=== PATIENT | female | born 1980 | race American Indian/Alaskan Native ===

== ENCOUNTER 2020-11-24 07:25 | Emergency (ER) | payer SELFPAY ==
--- NOTE | 2020-11-24 07:58 | Emergency Department Report ---
Blank Doc - Documentation Documentation: 40-year-old female that presents with RLQ with nausea. Stated also has vaginal discharge. 1- This initial assessment/diagnostic orders/clinical plan/ treatment(s) is/are subject to change based on pt's health status, clinical progression and re- assessment by fellow clinical providers in the ED. Further treatment and workup at subsequent clinical provers discretion. Patient/guardians urged not to elope from ED as their condition may be serious if not clinically assessed and managed. 2-labs 3-UA
[2020-11-24 09:03] LABS: Basophils % (Auto) 0.6 % (0.0-1.8); Eosinophils # (Auto) 0.2 K/mm3 (0.0-0.4); Hematocrit 26.4 % (30.3-42.9); Hemoglobin 8.2 gm/dl (10.1-14.3); Lymphocytes # (Auto) 1.6 K/mm3 (1.2-5.4); Lymphocytes % (Auto) 23.1 % (13.4-35.0); Mean Corpuscular HGB Conc 31 % (30-34); Monocytes # (Auto) 0.6 K/mm3 (0.0-0.8); Monocytes % (Auto) 8.5 % (0.0-7.3); Platelet Count 289 K/mm3 (140-440); Red Blood Count 3.82 M/mm3 (3.65-5.03)
[2020-11-24 09:05] LABS: Mean Corpuscular Volume 69 fl (79-97); Red Cell Distribution Width 21.8 % (13.2-15.2)
[2020-11-24 09:27] LABS: Bilirubin,Urine NEG (Negative); Blood,Urine NEG (Negative); Color,Urine Yellow (Yellow); Mucus,Urine FEW /HPF; Protein,Urine <15 mg/dL mg/dL (Negative); RBC,Urine < 1.0 /HPF (0.0-6.0); Urobilinogen,Urine < 2.0 mg/dL (<2.0)
[2020-11-24 09:50] LABS: Alanine Aminotransferase 14 units/L (7-56); Albumin 3.9 g/dL (3.9-5); BUN/Creatinine Ratio 12; Blood Urea Nitrogen 11 mg/dL (7-17); Hemolysis Index 0
[2020-11-24] MEDS ORDERED: ONDANSETRON 4 MG/2 ML INJ IV ONE (09:54)
[2020-11-24] MEDS ORDERED: MORPHINE 2 MG/1 ML INJ IV ONE (09:54)
--- NOTE | 2020-11-24 09:56 | Emergency Department Report ---
ED Abdominal Pain HPI - General Chief Complaint: Abdominal Pain Stated Complaint: ABD PAIN Time Seen by Provider: 11/24/20 07:45 Source: patient Mode of arrival: Ambulatory Limitations: No Limitations - History of Present Illness Initial Comments: 40-year-old female, history of fibroids, presents to ED with abdominal pain x3 weeks. Patient states pain is located in the right lower quadrant, nonradiating. Aching in nature. Patient states pain is intermittent with no aggravating or alleviating factors. She reports nausea, no vomiting. She denies any fever, urinary frequency, hematuria, dysuria. She reports she had a fibroidectomy some years ago, but feels as if her fibroids may be back and causing her current pain. Patient also reports lumps in her right breast. Patient states this has been present for about 4 years. Patient states she had a mammogram approximately 4 years ago and was told that she had "lumpy breasts." Patient has not had a mammogram since. MD Complaint: abdominal pain -: week(s) (3) Location: RLQ Radiation: none Migration to: no migration Severity: moderate Quality: aching Consistency: intermittent Improves With: nothing Worsens With: nothing Associated Symptoms: nausea. denies: vomiting, diarrhea, fever, dysuria, hematuria - Related Data Previous Rx's Medication Instructions Recorded Last Taken Type Naproxen [Naprosyn] 500 mg PO BID #20 tablet 11/24/20 Unknown Rx traMADoL [Ultram] 50 mg PO Q6HR PRN #7 tablet 11/24/20 Unknown Rx Allergies Allergy/AdvReac Type Severity Reaction Status Date / Time No Known Allergies Allergy Unverified 11/24/20 07:42 ED Review of Systems ROS: Stated complaint: ABD PAIN Other details as noted in HPI Comment: All other systems reviewed and negative Constitutional: denies: chills, fever Gastrointestinal: abdominal pain. denies: nausea, vomiting, diarrhea Genitourinary: denies: dysuria, frequency, hematuria Other: reports breast masses ED Past Medical Hx - Past Medical History Previous Medical History?: No - Surgical History Past Surgical History?: Yes Additional Surgical History: fibroids - Social History Smoking Status: Current Every Day Smoker Substance Use Type: None - Medications Home Medications: Home Medications Medication Instructions Recorded Confirmed Last Taken Type Naproxen [Naprosyn] 500 mg PO BID #20 tablet 11/24/20 Unknown Rx traMADoL [Ultram] 50 mg PO Q6HR PRN #7 tablet 11/24/20 Unknown Rx ED Physical Exam - General Limitations: No Limitations General appearance: alert, in no apparent distress, obese - Head Head exam: Present: atraumatic, normocephalic - Eye Eye exam: Present: normal appearance, EOMI - ENT ENT exam: Present: mucous membranes moist - Neck Neck exam: Present: normal inspection - Respiratory Respiratory exam: Present: normal lung sounds bilaterally. Absent: respiratory distress - Cardiovascular Cardiovascular Exam: Present: regular rate, normal rhythm - GI/Abdominal GI/Abdominal exam: Present: soft, tenderness (RLQ tenderness), other (uterus enlarged). Absent: distended - Extremities Exam Extremities exam: Present: normal inspection - Neurological Exam Neurological exam: Present: alert, oriented X3 - Psychiatric Psychiatric exam: Present: normal affect, normal mood - Skin Skin exam: Present: warm, dry, intact, normal color. Absent: rash - Other Other exam information: palpable masses in right breast ED Course Vital Signs 11/24/20 11/24/20 11/24/20 07:42 09:56 09:57 Temperature 98.2 F Pulse Rate 88 68 Respiratory 16 16 16 Rate Blood Pressure 128/80 Blood Pressure 128/86 [Left] O2 Sat by Pulse 100 100 100 Oximetry 11/24/20 12:48 Temperature Pulse Rate 74 Respiratory 20 Rate Blood Pressure Blood Pressure 144/78 [Left] O2 Sat by Pulse 100 Oximetry ED Medical Decision Making - Lab Data Result diagrams: 11/24/20 08:22 11/24/20 08:22 - Radiology Data Radiology results: report reviewed, image reviewed - Medical Decision Making 40-year-old female presents to ED with right lower abdominal pain. Patient suspects may be due to return of fibroids. Patient is afebrile, WBCs are normal. UA does not show any evidence of UTI. CT abdomen pelvis shows left ovarian cyst, fibroid uterus, and cholelithiasis. LFTs are normal, patient has no right upper quadrant tenderness on exam. Patient has a left ovarian cyst, however her pain is located in the right lower quadrant. Pain is possibly secondary to her fibroids. Patient also has breast masses in right breast. Patient will be discharged at this time. She is encouraged to follow-up with gynecology. Prescriptions will be given. Return precautions given. - Differential Diagnosis Ectopic , appendicitis, UTI, fibroids Critical care attestation.: If time is entered above; I have spent that time in minutes in the direct care of this critically ill patient, excluding procedure time. ED Disposition Clinical Impression: Fibroid, uterine, Ovarian cyst, Gallstones, Breast mass Disposition: TO HOME OR SELFCARE Is pt being admited?: No Condition: Stable Instructions: Cholelithiasis, Uterine Fibroids, [id number], Ovarian Cyst, [id number], Abdominal Pain (ED) Prescriptions: Naproxen [Naprosyn] 500 mg PO BID #20 tablet traMADoL [Ultram] 50 mg PO Q6HR PRN #7 tablet PRN Reason: Pain Referrals: PRIMARY CARE, [Primary Care Provider] - 3-5 Days BANDAR ROJAS MD [Staff Physician] - 3-5 Days MYA MEDINA MD [Staff Physician] - 3-5 Days [facility] [Provider Group] - 3-5 Days [facility] [Provider Group] - 3-5 Days [facility] [place] [Outside] - 3-5 Days Time of Disposition: 11:39
--- NOTE | 2020-11-24 11:30 | Cat Scan Report ---
CT ABDOMEN AND PELVIS WITH CONTRAST HISTORY: Right lower quadrant abdominal pain. COMPARISON: None. TECHNIQUE: Helical CT images of the abdomen and pelvis were obtained following administration of intr avenous contrast. Sagittal and coronal reformatted images were reviewed. All CT scans at this [facility] are performed using CT dose reduction for ALARA by means of automated exposure control. CONTRAST: 100 ml of intravenous contrast administered. FINDINGS: Abdomen/pelvis: There are multiple partially calcified gallstones measuring up to 1 cm. No biliary d ilatation or inflammation. The liver, pancreas, spleen, kidneys and adrenal glands are unremarkable. The bowel loops and appendix are normal. No evidence for obstruction, focal inflammation, free fluid or free air. The uterus is markedly enlarged with multiple noncalcified fibroids measuring up to 9 cm in diameter. An exophytic fibroid from the left side of the uterine fundus measures 6 cm. There is a 7.3 cm cysti c structure in the left adnexal region which presumably represents a large ovarian cyst. The right ad nexa is unremarkable. The endometrial stripe is displaced but appears normal thickness. The bladder i s decompressed and poorly evaluated. No gross abnormality. Lungs/bones: No significant abnormality. IMPRESSION: No acute inflammatory process. No evidence for appendicitis. Cholelithiasis. Moderate to severe uterine fibroid disease. 7.3 cm left adnexal cyst which is probably ovarian in origin. Signer Name: Beltran Naylor Jr, MD Signed: 11/24/2020 11:25 AM Workstation Name: [id number]
[2020-11-24 12:49] VITALS: BP 144/78
== END 2020-11-24 12:55 | disposition home or self-care (01) ==
LOC: ED 07:25
DX: N83.201 Unspecified ovarian cyst, right side (principal); D24.1 Benign neoplasm of right breast; F17.200 Nicotine dependence, unspecified, uncomplicated; Z79.899 Other long term (current) drug therapy
CPT/HCPCS: 36415; 74177; 80053; 81001; 83690; 84703; 85025; 96374; 96375; 99284; J2270; J2405; Q9967